=== PATIENT | female | born 1965 | race Caucasian/White ===

== ENCOUNTER 2016-07-03 11:06 | Emergency (ER) | payer BC ==
--- NOTE | 2016-07-03 11:18 | ER Document Report ---
ED Medical Screen (RME) - General Stated Complaint: ARM/HAND PAIN Notes: 50 yo female c/o left hand/arm pain. fell up the stairs yesterday. TRAVEL OUTSIDE OF THE [place] IN LAST 30 DAYS: No - Related Data Allergies/Adverse Reactions: Penicillins Allergy (Verified 04/27/16 10:38) Physical Exam - Vital signs Vitals: Temp Pulse Resp BP Pulse Ox 98.0 F 108 H 18 129/85 H 98 07/03/16 11:15 07/03/16 11:15 07/03/16 11:15 07/03/16 11:15 07/03/16 11:15 Course - Vital Signs Vital signs: Temp Pulse Resp BP Pulse Ox 98.0 F 108 H 18 129/85 H 98 07/03/16 11:15 07/03/16 11:15 07/03/16 11:15 07/03/16 11:15 07/03/16 11:15
[2016-07-03 13:13] VITALS: BP 139/71
--- NOTE | 2016-07-03 13:29 | ER Document Report ---
ED Extremity Problem, Upper - General Chief Complaint: Arm Pain Stated Complaint: ARM/HAND PAIN Mode of Arrival: Ambulatory Information source: Patient Notes: 50-year-old female presents to the emergency department complaining of left hand and wrist pain status post mechanical fall. Patient reports tripped while going down 2 steps yesterday landing on her left wrist/hand. Reports localized swelling and pain to area worse with movement. Denies numbness, tingling, color changes. States did not strike head and denies back pain. TRAVEL OUTSIDE OF THE [place] IN LAST 30 DAYS: No - HPI Patient complains to provider of: Left, Hand, Wrist Onset: Yesterday Recent injury: Possibly Where: Indoors Quality of pain: Achy Severity of pain: Mild Pain Level: 2 Context: Fall Associated symptoms: None Exacerbated by: Movement Relieved by: Rest, Positioning Similar symptoms previously: No Recently seen / treated by doctor: No - Related Data Allergies/Adverse Reactions: Penicillins Allergy (Verified 04/27/16 10:38) codeine Allergy (Uncoded 07/03/16 11:19) Past Medical History - General Information source: Patient - Social History Smoking Status: Current Every Day Smoker Chew tobacco use (# tins/day): No Frequency of alcohol use: None Drug Abuse: None Lives with: Family Family History: Reviewed & Not Pertinent Patient has suicidal ideation: No Patient has homicidal ideation: No - Medical History Medical History: Negative Renal/ Medical History: Denies: Hx Peritoneal Dialysis Past Surgical History: Reports: Hx Breast Surgery - tumor removed on left, Hx Section, Hx Gynecologic Surgery - ablasion - Immunizations Hx Diphtheria, Pertussis, Tetanus Vaccination: Yes Review of Systems - Review of Systems Constitutional: No symptoms reported EENT: No symptoms reported Cardiovascular: No symptoms reported Respiratory: No symptoms reported Gastrointestinal: No symptoms reported Genitourinary: No symptoms reported Female Genitourinary: No symptoms reported Musculoskeletal: See HPI Skin: No symptoms reported Hematologic/Lymphatic: No symptoms reported Neurological/Psychological: No symptoms reported -: Yes All other systems reviewed and negative Physical Exam - Vital signs Vitals: Temp Pulse Resp BP Pulse Ox 98.0 F 108 H 18 129/85 H 98 07/03/16 11:15 07/03/16 11:15 07/03/16 11:15 07/03/16 11:15 02/01/17 11:15 Interpretation: Normal - General General appearance: Appears well, Alert In distress: None - HEENT Head: Normocephalic, Atraumatic Eyes: Normal Pupils: PERRL - Respiratory Respiratory status: No respiratory distress Chest status: Nontender Breath sounds: Normal Chest palpation: Normal - Cardiovascular Rhythm: Regular Heart sounds: Normal auscultation Murmur: No Pulses: Normal: Radial Normal capillary refill: Yes - Abdominal Inspection: Normal Distension: No distension Bowel sounds: Normal Tenderness: Nontender Organomegaly: No organomegaly - Back Back: Normal, Nontender - Extremities General upper extremity: Normal inspection, Nontender, Normal color, Normal ROM , Normal strength, Normal temperature. No: Tender, Edema General lower extremity: Normal inspection, Nontender, Normal color, Normal ROM , Normal strength, Normal temperature, Normal weight bearing. No: Tender, Edema Forearm: Normal, Nontender Wrist: Tender - Tenderness with palpation to the left wrist and hand. Mild localized swelling. Full but painful range of motion. No bruising, instability , or deformity. Neurovascular function intact with immediate capillary refill and intact sensation. No navicular or snuffbox tenderness.. No: Deformity, Dislocation, Ecchymosis, Instability, Limited ROM, Navicular tenderness Hand: Tender, No evidence of FB. No: Deformity, Dislocation, Ecchymosis, Instability, Swelling - Neurological Neuro grossly intact: Yes Cognition: Normal Orientation: AAOx4 [place] Coma Scale Eye Opening: Spontaneous [place] Coma Scale Verbal: Oriented [place] Coma Scale Motor: Obeys Commands Javier Coma Scale Total: 15 Speech: Normal Motor strength normal: LUE, RUE, LLE, RLE Sensory: Normal - Psychological Associated symptoms: Normal affect, Normal mood - Skin Skin Temperature: Warm Skin Moisture: Dry Skin Color: Normal Course - Re-evaluation Re-evalutation: 07/03/16 13:30 Patient hemodynamically stable, in no distress. X-rays negative for osseous injury. Neurovascular function intact. Cock-up splint placed per nursing staff. Patient appears stable for discharge and agrees with home care, follow- up, and ED return precautions. - Vital Signs Vital signs: Temp Pulse Resp BP Pulse Ox 98.0 F 103 H 18 139/71 H 99 07/03/16 11:15 07/03/16 13:10 07/03/16 11:15 07/03/16 13:10 07/03/16 13:10 07/05/16 22:39 - Diagnostic Test Radiology reviewed: Image reviewed, Reports reviewed Procedures - Immobilization Left Wrist Time completed: 13:25 Pre-Proc Neuro Vasc Exam: Normal Immobilizer type: Cock-up Performed by: RN, PCT Post-Proc Neuro Vasc Exam: Normal Alignment checked and good: Yes Discharge - Discharge Clinical Impression: Left wrist sprain Qualifiers: Encounter type: initial encounter Qualified Code(s): S63.502A - Unspecified sprain of left wrist, initial encounter Hand contusion Qualifiers: Encounter type: initial encounter Laterality: left Qualified Code(s): S60.222A - Contusion of left hand, initial encounter Condition: Stable Disposition: HOME, SELF-CARE Instructions: Wrist Sprain ([facility]), Ice & Elevation ([facility]), Temporary Splint ([facility]) , Use of Emdu-Stq-Ntddffk Ibuprofen ([facility]), Oral Narcotic Medication ([facility]), Family Physicians / Practices Additional Instructions: Follow-up with your primary care provider this week as discussed. Return to the emergency department for any worsening symptoms or concerns. Prescriptions: Oxycodone HCl/Acetaminophen [Percocet 5-325 mg Tablet] 1 tab PO Q6HP PRN #6 tablet PRN Reason: Forms: Return to Work Referrals: [facility] [NO LOCAL MD] - Follow up in 3-5 days
== END 2016-07-03 13:30 | disposition home or self-care (01) ==
LOC: ER 11:06
DX: S63.502A Unspecified sprain of left wrist, initial encounter (principal); S60.222A Contusion of left hand, initial encounter; F17.200 Nicotine dependence, unspecified, uncomplicated; W10.9XXA Fall (on) (from) unspecified stairs and steps, initial encounter; Z88.0 Allergy status to penicillin; Z88.6 Allergy status to analgesic agent
CPT/HCPCS: 99283; 73130; 73110; L3984

== ENCOUNTER 2017-04-30 11:42 | Emergency (ER) | payer BC ==
--- NOTE | 2017-04-30 13:05 | ER Document Report ---
HPI - HPI Patient complains to provider of: Concerned about wound infection Onset: Yesterday Onset/Duration: Better Quality of pain: Achy Pain Level: 2 Context: Patient recently had skin biopsies performed 2 weeks ago. Patient states that the biopsy site on her right upper abdomen was looking infected last night. Patient states she had some drainage from the wound and she cleaned it with peroxide. Patient states that this particular wound gets irritated from her pendulous breasts when she is not wearing a bra. Patient denies any fever. Associated Symptoms: Other - Possible skin infection Exacerbated by: Denies Relieved by: Denies Similar symptoms previously: No Recently seen / treated by doctor: Yes - ROS ROS below otherwise negative: Yes Systems Reviewed and Negative: Yes All other systems reviewed and negative - CONSTITUTIONAL Constitutional: DENIES: Fever, Chills - DERM Notes: Biopsy wound infection Past Medical History - General Information source: Patient - Social History Smoking Status: Current Every Day Smoker Smoking Education Provided: Yes Frequency of alcohol use: None Drug Abuse: None Occupation: None Lives with: Family Family History: Reviewed & Not Pertinent - Medical History Medical History: Negative Renal/ Medical History: Denies: Hx Peritoneal Dialysis Past Surgical History: Reports: Hx Breast Surgery - tumor removed on left, Hx Section, Hx Gynecologic Surgery - ablasion - Immunizations Hx Diphtheria, Pertussis, Tetanus Vaccination: Yes Vertical Provider Document - CONSTITUTIONAL Agree With Documented VS: Yes Exam Limitations: No Limitations General Appearance: WD/WN, No Apparent Distress - INFECTION CONTROL TRAVEL OUTSIDE OF THE [place] IN LAST 30 DAYS: No - HEENT HEENT: Atraumatic, Normocephalic - NECK Neck: Normal Inspection, Supple - RESPIRATORY Respiratory: Breath Sounds Normal, No Respiratory Distress O2 Sat by Pulse Oximetry: 99 - CARDIOVASCULAR Cardiovascular: Regular Rate, Regular Rhythm - MUSCULOSKELETAL/EXTREMETIES Musculoskeletal/Extremeties: MAEW - NEURO Level of Consciousness: Awake, Alert, Appropriate Motor/Sensory: No Motor Deficit - DERM Integumentary: Warm, Dry. negative: Abscess Adult Front & Back Diagram: 1 - Shallow 1 mm ulceration with minimal erythematous edge of wound. No concern for cellulitis Course - Re-evaluation Re-evalutation: 04/30/17 The patient has been informed that they may have pre-hypertension or hypertension based on a blood pressure reading in the emergency department. I recommend that patient call the primary care provider listed on their discharge instructions or a physician of their choice by this week to arrange follow-up for further evaluation of possible pre-hypertension or hypertension. - Vital Signs Vital signs: Temp Pulse Resp BP Pulse Ox 98.1 F 96 18 149/81 H 99 04/30/17 11:54 04/30/17 11:54 04/30/17 11:54 04/30/17 11:54 04/30/17 11:54 - Laboratory Laboratory results interpreted by me: 04/30/17 13:04 Reviewed patient's pathology report Discharge - Discharge Clinical Impression: Elevated blood pressure reading, Inflammation, skin, hx recent skin biopsy Condition: Stable Disposition: HOME, SELF-CARE Instructions: Bactroban Ointment ([facility]), Soap Cleansing ([facility]) Additional Instructions: Return immediately for any new or worsening symptoms Followup with your primary care provider, call tomorrow to make a followup appointment Prescriptions: Mupirocin [Bactroban 2% Ointment 22 gm] 1 applic TP TID #22 gm Forms: Elevated Blood Pressure, Smoking Cessation Education Referrals: ALEISHA EWING MD [ACTIVE STAFF] - Follow up as needed
[2017-04-30 13:20] VITALS: BP 117/76
== END 2017-04-30 13:20 | disposition home or self-care (01) ==
LOC: ER 11:42
DX: L98.499 Non-pressure chronic ulcer of skin of other sites with unspecified severity (principal); Z98.890 Other specified postprocedural states; R03.0 Elevated blood-pressure reading, without diagnosis of hypertension; F17.200 Nicotine dependence, unspecified, uncomplicated; Z71.6 Tobacco abuse counseling
CPT/HCPCS: 99283

== ENCOUNTER 2018-04-04 14:27 | Emergency (ER) | payer BC ==
[2018-04-04 14:33] VITALS: BP 134/79
[2018-04-04] MEDS ORDERED: DIPH/PERTUSS(ACELL)/TETANUS VAC/PF 0.5 ML SYR (>=10YO) IM ONE (15:44)
--- NOTE | 2018-04-04 15:57 | ER Document Report ---
HPI - HPI Pain Level: 2 Notes: Patient is a 52-year-old female who presents with chief complaint of injury to her left index finger. Patient reports she was working on her house when she was stabbed with a shad nail. She states that the nail went underneath the bed of the fingernail, she states she pulled it out and had no difficulties. She states she washed her hand with an antibacterial soap immediately afterwards. Patient is concerned because she believes she needs an updated tetanus shot. She reports the last one she had was 8-9 years ago. - CONSTITUTIONAL Constitutional: DENIES: Fever, Chills - EENT EENT: DENIES: Sore Throat, Ear Pain, Eye problems - NEURO Neurology: DENIES: Headache, Weakness, Vision blurred, Dizzinesss / Vertigo - CARDIOVASCULAR Cardiovascular: DENIES: Chest pain - RESPIRATORY Respiratory: DENIES: Trouble Breathing, Coughing - GASTROINTESTINAL Gastrointestinal: DENIES: Abdominal Pain, Black / Bloody Stools - URINARY Urinary: DENIES: Dysuria, Urgency, Frequency - MUSCULOSKELETAL Musculoskeletal: DENIES: Extremity pain Past Medical History - General Information source: Patient - Social History Smoking Status: Current Every Day Smoker Chew tobacco use (# tins/day): No Frequency of alcohol use: None Drug Abuse: None Family History: Reviewed & Not Pertinent Patient has suicidal ideation: No Patient has homicidal ideation: No - Medical History Medical History: Negative Renal/ Medical History: Denies: Hx Peritoneal Dialysis Past Surgical History: Reports: Hx Breast Surgery - tumor removed on left, Hx Section, Hx Gynecologic Surgery - ablasion - Immunizations Hx Diphtheria, Pertussis, Tetanus Vaccination: Yes Vertical Provider Document - CONSTITUTIONAL Notes: PHYSICAL EXAMINATION: GENERAL: Well-appearing, well-nourished and in no acute distress. HEAD: Atraumatic, normocephalic. EYES: Pupils equal round extraocular movements intact, conjunctiva are normal. ENT: Nares patent NECK: Normal range of motion LUNGS: No respiratory distress Musculoskeletal: Normal range of motion NEUROLOGICAL: Normal speech, normal gait. PSYCH: Normal mood, normal affect. SKIN: Warm, Dry, normal turgor, no rashes or lesions noted. - INFECTION CONTROL TRAVEL OUTSIDE OF THE [place] IN LAST 30 DAYS: No Course - Re-evaluation Re-evalutation: Unable to visualize any wound to patient's finger. She does state that it was a very small nail that slid under her left index finger. The nail is intact. Tetanus will be updated today. - Vital Signs Vital signs: Temp Pulse Resp BP Pulse Ox 98.3 F 82 20 134/79 H 98 04/04/18 14:32 04/04/18 14:32 04/04/18 14:32 04/04/18 14:32 04/04/18 14:32 Discharge - Discharge Clinical Impression: Tetanus-diphtheria (Td) vaccination Condition: Stable Disposition: HOME, SELF-CARE Additional Instructions: Tetanus Immunization Given You have been given an immunization against tetanus. Please record this in your records. In general, a booster is needed only once every 10 years. The tetanus shot protects against tetanus or "lockjaw," which is a complication of certain wound infections (the tetanus shot cannot protect against the actual infection). The immunization site may become warm and red due to local reaction. If this occurs, apply warm compresses and take aspirin or ibuprofen to reduce inflammation and discomfort. Return for evaluation if the reaction becomes severe. Referrals: TAD ASHTON MD [Primary Care Provider] - Follow up as needed
== END 2018-04-04 16:06 | disposition home or self-care (01) ==
LOC: ER 14:27
DX: S69.92XA Unspecified injury of left wrist, hand and finger(s), initial encounter (principal); W45.0XXA Nail entering through skin, initial encounter; Z23 Encounter for immunization; F17.200 Nicotine dependence, unspecified, uncomplicated
CPT/HCPCS: 90471; 90715; 99282

== ENCOUNTER → 2018-10-23 | Outpatient (CLI) | payer BC | LOC: WI 10:28 | PROVIDERS: ATTEND Family Medicine | DX: Z12.31 Encounter for screening mammogram for malignant neoplasm of breast (principal) | CPT/HCPCS: 77063; 77067 ==

== ENCOUNTER → 2019-08-27 | Outpatient (CLI) | payer BC ==
--- NOTE | 2019-08-27 16:58 | RADIOLOGY REPORT (SQ) ---
EXAM DESCRIPTION: U/S NON-OB PELVIS TV W/O DOP IMAGES COMPLETED DATE/TIME: 08/27/2019 4:33 pm REASON FOR STUDY: Z80.41 LEIOMYOMA OF UTERUS, UNSPECIFIED D25.9 LEIOMYOMA OF UTERUS, UNSPECIFIED COMPARISON: None. TECHNIQUE: Dynamic and static grayscale images acquired of the pelvis via transvaginal approach and recorded on PACS. Additional selected color Doppler and spectral images recorded. LIMITATIONS: None. FINDINGS: UTERUS: Heterogenous echotexture. At least two uterine fibroids are identified which adrian sure 1.8 x 1.6 x 1.8 cm and 2.1 x 1.8 x 1.3 cm. ENDOMETRIAL STRIPE: The patient has a history of multiple endometrial of relations. The endometrium is heterogenous in appearance. Difficult to identify the margins therefore measurement was not obta ined. CERVIX: No nabothian cysts. RIGHT OVARY AND DOPPLER: Normal size. No worrisome masses. Normal arterial vascular flow without evid ence for torsion. LEFT OVARY AND DOPPLER: The left ovary is not visualized due to overlying bowel gas. FREE FLUID: None noted. OTHER: No other significant finding. MEASUREMENTS: UTERUS: 5.4 x 2.8 x 3.8 cm ENDOMETRIAL STRIPE: Difficult to visualize RIGHT OVARY: 1.8 x 0.8 x 1.4 cm IMPRESSION: 1. Heterogenous echotexture to the uterus. Uterine fibroids. 2. The patient has a history of multiple endometrial ablations. The endometrium is heterogenous in appearance and difficult to identify. 3. The left ovary is not visualized due to overlying bowel gas. TECHNICAL DOCUMENTATION: JOB ID: [id number] 2010 [employer]- All Rights Reserved Rev-10/17 Reading location - IP/workstation name: [email or web address]
== END ==
LOC: RAD 15:41
PROVIDERS: ATTEND Family Medicine
DX: D25.9 Leiomyoma of uterus, unspecified (principal); Z80.41 Family history of malignant neoplasm of ovary
CPT/HCPCS: 76830

== ENCOUNTER → 2019-11-26 | Outpatient (CLI) | payer BC, MEDICARE ==
--- NOTE | 2019-11-26 12:53 | WOMENS IMAGING REPORT ---
EXAM DESCRIPTION: 3D SCREENING MAMMO BILAT IMAGES COMPLETED DATE/TIME: 11/26/2019 10:32 am REASON FOR STUDY: Z12.31 ENCOUNTER FOR SCREENING MAMMOGRAM FOR MALIGNANT NEOPLASM OF BREAST Z12.31 ENCNTR SCREEN MAMMOGRAM FOR MALIGNANT NEOPLASM OF JUNIOR COMPARISON: 2019 EXAM PARAMETERS: Views: Standard craniocaudal and mediolateral oblique views of each breast recorded using digital acquisition and breast tomosynthesis. Read with the assistance of CAD. .COUNT INCLUDES THE [facility] - [employer] Calender Inspector Version 9.2 LIMITATIONS: None. FINDINGS: No suspicious masses, suspicious calcifications or architectural distortion. No areas of c oncern. IMPRESSION: NEGATIVE MAMMOGRAM. BIRADS 1. BREAST DENSITY: c. The breasts are heterogeneously dense, which may obscure small masses. BIRAD: ASSESSMENT: 1 NEGATIVE RECOMMENDATION: ROUTINE SCREENING COMMENT: The patient has been notified of the results by letter per MQSA requirements. Additional no tification policies are in place for contacting patient with suspicious or incomplete findings. Quality ID #[id number]: The [employer] recommends an annual screening mammogram for women aged 40 years or over. This facility utilizes a reminder system to ensure that all patients receive reminder letters, and/or direct phone calls for appointments. This includes reminders for routine scr eening mammograms, diagnostic mammograms, or other Breast Imaging Interventions when appropriate. Th is patient will be placed in the appropriate reminder system. TECHNICAL DOCUMENTATION: FINDING NUMBER: (1) ASSESSMENT: (1) JOB ID: [id number] 2010 [employer]- All Rights Reserved Reading location - IP/workstation name: [email or web address]
== END ==
LOC: WI 10:05
PROVIDERS: ATTEND Family Medicine
DX: Z12.31 Encounter for screening mammogram for malignant neoplasm of breast (principal)
CPT/HCPCS: 77063; 77067